=== PATIENT | male | born 1995 | race African-American/Black ===

== ENCOUNTER 2021-05-20 21:24 | Emergency (ER) | payer BC, MEDICAID ==
[~2021-05-20] VITALS: Ht 175.3 cm; Wt 64.0 kg
[2021-05-20 22:32] VITALS: BP 144/97
[2021-05-20] MEDS ORDERED: LIDOCAINE HCL 1% 20ML VIAL (Pyxis) INJ INFIL ONE (23:15)
[2021-05-20] MEDS ORDERED: CEFTRIAXONE SODIUM 500 MG/VIAL IM ONE (23:15)
[2021-05-21] MEDS ORDERED: DOXY100C42 MT (00:15)
[2021-05-21 00:30] LABS: CLARITY URINE CLEAR (CLEAR); COLOR URINE YELLOW (YELLOW); KETONES URINE TRACE (NEGATIVE); LEUKOCYTE ESTERASE URINE NEGATIVE (NEGATIVE); NITRITE URINE NEGATIVE (NEGATIVE); OCCULT BLOOD URINE NEGATIVE (NEGATIVE); PH URINE 5.5 (4.5-8.0); PROTEIN URINE NEGATIVE (NEGATIVE); SPECIFIC GRAVITY URINE 1.022 (1.005-1.030); UROBILINOGEN URINE 0.2 E.U./dL (0.2-1.0)
== END 2021-05-21 00:56 | disposition home or self-care (01) ==
LOC: ER 21:24
DX: N34.2 Other urethritis (principal); Z20.2 Contact with and (suspected) exposure to infections with a predominantly sexual mode of transmission
CPT/HCPCS: 71045; 81003; 96372; 99284; J0696; J3490

== ENCOUNTER 2021-05-28 23:40 | Emergency (ER) | payer BC, MEDICAID ==
[~2021-05-28] VITALS: Ht 175.3 cm; Wt 69.0 kg
[~2021-05-28 23:40] MED LIST: DOXY100C42 MT
[2021-05-29 01:08] LABS: BASOPHILS % 0.7 % (0.0-2.0); HEMATOCRIT. 39.5 % (42.0-52.0); HEMOGLOBIN. 13.6 g/dL (14.0-18.0); LYMPHOCYTES % 21.3 % (20.0-50.0); MEAN CORPUSCULAR HEMOGLOBIN 30.6 pg (28.0-32.0); MEAN PLATELET VOLUME 7.6 fl (7.4-10.4); MONOCYTES % 8.5 % (2.0-8.0); NEUTROPHILS % 68.5 % (40.0-76.0); PLATELET 267 x1000/uL (130-400); RED BLOOD CELL COUNT 4.44 mill/uL (4.7-6.1); RED CELL DISTRIBUTION WIDTH 12.6 % (11.6-14.6)
[2021-05-29 01:18] LABS: CHLORIDE 105 mEq/L (98-107)
[2021-05-29] MEDS ORDERED: SODIUM CHLORIDE 0.9% 1,000 ML IV ONE ×2 (02:00)
[2021-05-29 02:55] LABS: CLARITY URINE CLEAR (CLEAR); COLOR URINE YELLOW (YELLOW); KETONES URINE 1+ (NEGATIVE); LEUKOCYTE ESTERASE URINE NEGATIVE (NEGATIVE); NITRITE URINE NEGATIVE (NEGATIVE); OCCULT BLOOD URINE 1+ (NEGATIVE); PH URINE 5.5 (4.5-8.0); PROTEIN URINE NEGATIVE (NEGATIVE); SPECIFIC GRAVITY URINE 1.022 (1.005-1.030); UROBILINOGEN URINE 0.2 E.U./dL (0.2-1.0)
[2021-05-29 03:14] LABS: *AMPHETAMINES SCREEN URINE NEGATIVE (NEGATIVE); *BARBITURATES SCREEN URINE NEGATIVE (NEGATIVE); *BENZODIAZEPINES SCREEN URINE NEGATIVE (NEGATIVE); *COCAINE SCREEN URINE NEGATIVE (NEGATIVE); METHADONE URINE SCREEN NEGATIVE (NEGATIVE); OPIATES URINE SCREEN NEGATIVE (NEGATIVE); PHENCYCLIDINE URINE SCREEN NEGATIVE (NEGATIVE)
[2021-05-29 03:15] LABS: CANNABINOID URINE SCREEN NEGATIVE (NEGATIVE)
[2021-05-29 04:15] VITALS: BP 119/69
== END 2021-05-29 04:55 | disposition home or self-care (01) ==
LOC: ER 23:40
DX: E87.2 Acidosis (principal); Z20.828 Contact with and (suspected) exposure to other viral communicable diseases
CPT/HCPCS: 36415; 71045; 80053; 80305; 81003; 83605; 85025; 96360; 96361; 99285; C9803; J7030; U0003; U0005

== ENCOUNTER 2021-10-11 16:00 | Emergency (ER) | payer BC, MEDICAID ==
[~2021-10-11] VITALS: Ht 175.3 cm; Wt 60.0 kg
[~2021-10-11 16:00] MED LIST changes: +DOXY-326 MT; -DOXY100C42 MT
[2021-10-11 16:56] VITALS: BP 159/92
[2021-10-11] MEDS ORDERED: CEFTRIAXONE SODIUM 500 MG/VIAL IM ONE (17:30)
[2021-10-11] MEDS ORDERED: LIDOCAINE HCL 1% 20ML VIAL (Pyxis) INJ INFIL ONE (17:30)
[2021-10-11] MEDS ORDERED: DOXY100C5 MT (18:54)
[2021-10-11 19:30] LABS: CLARITY URINE CLEAR (CLEAR); COLOR URINE YELLOW (YELLOW); KETONES URINE NEGATIVE (NEGATIVE); LEUKOCYTE ESTERASE URINE NEGATIVE (NEGATIVE); NITRITE URINE NEGATIVE (NEGATIVE); OCCULT BLOOD URINE NEGATIVE (NEGATIVE); PROTEIN URINE NEGATIVE (NEGATIVE); SPECIFIC GRAVITY URINE 1.003 (1.005-1.030); UROBILINOGEN URINE 0.2 E.U./dL (0.2-1.0)
[2021-10-14 04:07] LABS: NEISSERIA GONORRHOEAE NAA Negative (Negative)
== END 2021-10-11 19:04 | disposition home or self-care (01) ==
LOC: ER 16:00
DX: N50.812 Left testicular pain (principal); Z20.2 Contact with and (suspected) exposure to infections with a predominantly sexual mode of transmission; Z79.899 Other long term (current) drug therapy
CPT/HCPCS: 76870; 81003; 87491; 87591; 93976; 96372; 99284; J0696; J3490

== ENCOUNTER 2022-07-16 19:04 | Emergency (ER) | payer MEDICAID ==
[~2022-07-16] VITALS: Ht 188 cm; Wt 91.0 kg
[~2022-07-16 19:04] MED LIST changes: +DOXY100C5 MT
[2022-07-17] MEDS ORDERED: NAPR-1176 MT (00:34)
[2022-07-17 00:56] VITALS: BP 127/65
[2022-07-17 01:01] LABS: CLARITY URINE CLEAR (CLEAR); COLOR URINE YELLOW (YELLOW); KETONES URINE NEGATIVE (NEGATIVE); LEUKOCYTE ESTERASE URINE NEGATIVE (NEGATIVE); NITRITE URINE NEGATIVE (NEGATIVE); OCCULT BLOOD URINE NEGATIVE (NEGATIVE); PROTEIN URINE NEGATIVE (NEGATIVE); SPECIFIC GRAVITY URINE 1.002 (1.005-1.030); UROBILINOGEN URINE 0.2 E.U./dL (0.2-1.0)
== END 2022-07-17 00:58 | disposition home or self-care (01) ==
LOC: ER 19:04
DX: M54.50 Low back pain, unspecified (principal)
CPT/HCPCS: 81003; 99283